=== PATIENT | female | born 1970 | race Caucasian/White ===

== ENCOUNTER 2020-02-24 09:14 | Outpatient (CLI) | payer BC, SELFPAY ==
--- NOTE | ~2020-02-24 | MM_ITS ---
EXAMINATION: MM screening [facility] BI w hang HISTORY: Screening mammogram TECHNIQUE: Craniocaudal and mediolateral oblique 3-D tomosynthesis images were obtained and synthetic 2-D images were generated. CAD analysis was submitted and interpreted. COMPARISON: 01/30/2019, 01/15/2018, 12/22/2016 bilateral digital screening mammogram examinations BREAST PARENCHYMAL COMPOSITION: The breasts are heterogeneously dense, which may obscure small masses . FINDINGS: There is no evidence of suspicious mass, calcification, or architectural distortion to sugg est malignancy in either breast. There has been no suspicious interval change. IMPRESSION: 1. No mammographic evidence of malignancy. 2. Recommend routine screening mammography in one year. BI-RADS Category 1: Negative Reviewed, dictated and finalized at location A. LE REPAIRER
== END 2020-02-24 09:15 | disposition home or self-care (01) ==
PROVIDERS: PCP Family Medicine; Visit Provider Nurse Practitioner Obstetrics & Gynecology
DX: Z12.31 Encounter for screening mammogram for malignant neoplasm of breast (principal)
CPT/HCPCS: 77063; 77067

== ENCOUNTER 2021-04-01 15:36 | Outpatient (CLI) | payer BC, SELFPAY ==
--- NOTE | ~2021-04-01 | MM_ITS ---
EXAMINATION: MM screening [facility] BI w hang HISTORY: Screening mammogram TECHNIQUE: Craniocaudal and mediolateral oblique 3-D tomosynthesis images were obtained and synthetic 2-D images were generated. CAD analysis was submitted and interpreted. COMPARISON: 02/24/2020, 01/30/2019, 01/15/2018 BREAST PARENCHYMAL COMPOSITION: The breasts are heterogeneously dense, which may obscure small masses . FINDINGS: There is no evidence of suspicious mass, calcification, or architectural distortion to sugg est malignancy in either breast. There has been no suspicious interval change. IMPRESSION: 1. No mammographic evidence of malignancy. 2. Recommend routine screening mammography in one year. BI-RADS Category 1: Negative Reviewed, dictated and finalized at location A. ER FOLDER
== END 2021-04-01 15:37 | disposition home or self-care (01) ==
PROVIDERS: PCP Family Medicine; Visit Provider Nurse Practitioner Obstetrics & Gynecology
DX: Z12.31 Encounter for screening mammogram for malignant neoplasm of breast (principal)
CPT/HCPCS: 77063; 77067

== ENCOUNTER 2021-04-23 08:05 | Outpatient (CLI) | payer BC, SELFPAY ==
[2021-04-23 09:18] LABS: Basophils Absolute Auto 0.1 K/mm3 (0.0-0.1); Eosinophils Absolute Auto 0.2 K/mm3 (0-0.3); Eosinophils Percent Auto 2.9 % (0-4.4); Hematocrit 43.8 % (37.0-47.0); Hemoglobin 14.6 g/dL (12.0-15.0); Immature Granulocyte Absolute 0.02 K/mm3 (0.00-0.031); Immature Granulocyte Percent A 0.3 % (0-0.5); Lymphocytes Absolute Auto 2.35 K/mm3 (0.9-3.2); Lymphocytes Percent Auto 40.4 % (18.3-44.2); Mean Corpuscular HGB Conc 33.3 g/dl (32-36); Mean Corpuscular Hemoglobin 32.6 pg (26-34); Mean Corpuscular Volume 97.8 fl (80-100); Mean Platelet Volume 10.7 fl (7.4-10.4); Monocytes Absolute Auto 0.6 K/mm3 (0.1-0.6); Monocytes Percent Auto 9.5 % (2.6-8.5); Neutrophils Absolute Auto 2.7 K/mm3 (1.3-6.7); Neutrophils Percent Auto 45.9 % (45.5-73.1); Platelet Count Result 188 k/mm3 (150-375); Red Blood Count 4.48 M/mm3 (4.2-5.4); Red Cell Distribution Width 12.2 % (11.5-14.5); White Blood Count 5.8 K/mm3 (4.5-10.0)
[2021-04-23 09:24] LABS: Alanine Aminotransferase 25 U/L (4-35); Albumin Level 4.6 g/dL (3.5-5.1); Alkaline Phosphatase 40 U/L (38-126); Anion Gap 7 mmol/L (8-16); Aspartate Amino Transferase 30 U/L (14-36); Bilirubin,Total 0.7 mg/dL (0.2-1.3); Blood Urea Nitrogen 13 mg/dL (7-17); Calcium 9.9 mg/dL (8.4-10.2); Carbon Dioxide 31 mmol/L (22-30); Chloride 104 mmol/L (98-107); Cholesterol 186 mg/dL (0-200); Estimated Glomerular Filt Rate > 60; Glucose 110 mg/dL (65-110); HDL Direct 44 mg/dL; Potassium 4.3 mmol/L (3.4-5.0); Sodium 142 mmol/L (137-145); Triglycerides 91 mg/dL (<150)
[2021-04-23 09:35] LABS: Hemoglobin A1C 5.5 % (<5.7)
[2021-04-23 09:37] LABS: LDL Cholesterol Direct 106 mg/dL
[2021-04-23 10:30] LABS: Vitamin D 25 Hydroxy 48.1 ng/mL
== END 2021-04-23 08:06 | disposition home or self-care (01) ==
LOC: ANHLAB 08:06
PROVIDERS: PCP Family Medicine; Visit Provider Family Medicine
DX: R53.83 Other fatigue (principal); R73.9 Hyperglycemia, unspecified
CPT/HCPCS: 36415; 80053; 80061; 82306; 83036; 85025

== ENCOUNTER 2022-11-19 07:47 | Outpatient (CLI) | payer BC, SELFPAY ==
--- NOTE | ~2022-11-19 | MM_ITS ---
EXAMINATION: MM screening [facility] BI w hang HISTORY: Screening mammogram TECHNIQUE: Craniocaudal and mediolateral oblique 3-D tomosynthesis images were obtained and synthetic 2-D images were generated. CAD analysis was submitted and interpreted. COMPARISON: No prior mammogram is available for comparison at this institution. BREAST PARENCHYMAL COMPOSITION: FINDINGS: Right breast: There is asymmetry in the upper outer right breast. Diagnostic right mammogram is recom mended, with ultrasound if required. Left breast: There is no evidence of suspicious mass, calcification, or architectural distortion to s uggest malignancy in the left breast. There has been no suspicious interval change. IMPRESSION: 1. Right breast mammographic asymmetry 2. Diagnostic right mammogram is recommended, with ultrasound if required BI-RADS Category 0: Incomplete: Needs additional imaging evaluation. Reviewed, dictated and finalized at location A.
== END 2022-11-19 07:48 | disposition home or self-care (01) ==
PROVIDERS: PCP Family Medicine; Visit Provider Nurse Practitioner Obstetrics & Gynecology
DX: Z12.31 Encounter for screening mammogram for malignant neoplasm of breast (principal); N64.89 Other specified disorders of breast
CPT/HCPCS: 77063; 77067

== ENCOUNTER 2022-12-27 12:26 | Outpatient (CLI) | payer BC, SELFPAY ==
--- NOTE | ~2022-12-27 | MMUS_ITS ---
EXAMINATION: MM diagnostic [facility] RT w hang, US breast RT limited HISTORY: Right breast mammographic asymmetry reported in upper outer quadrant on 11/19/2022 screening mammogram examination TECHNIQUE: Additional 3-D tomosynthesis images of the right breast were performed and synthetic 2-D i mages were generated. CAD analysis was submitted and interpreted. High resolution upper outer quadran t right breast ultrasound was performed. COMPARISON: 11/19/2022, 04/01/2021 bilateral screening mammogram examinations FINDINGS: MAMMOGRAPHIC FINDINGS: No suspicious mass or architectural distortion, malignant calcification, skin thickening or retractio n is evident on these supplemental views. ULTRASOUND: Real-time imaging of the upper outer quadrant of the right breast reveals no suspicious mass or shado wing, cyst or other significant abnormality. IMPRESSION: 1. No mammographic evidence of malignancy 2. Routine annual mammographic screening is recommended BI-RADS Category 1: Negative Reviewed, dictated and finalized at location C. IMPRESSION: 1. No mammographic evidence of malignancy 2. Routine annual mammographic screening is recommended BI-RADS Category 1: Negative
== END 2022-12-27 12:27 | disposition home or self-care (01) ==
PROVIDERS: PCP Family Medicine; Visit Provider Nurse Practitioner Obstetrics & Gynecology
DX: R92.8 Other abnormal and inconclusive findings on diagnostic imaging of breast (principal)
CPT/HCPCS: 76642; 77061; 77065; G0279

== ENCOUNTER 2024-04-25 15:43 | Outpatient (CLI) | payer BC, SELFPAY ==
--- NOTE | ~2024-04-25 | MM_ITS ---
EXAMINATION: MM screening enedelia BI w hang HISTORY: Screening TECHNIQUE: Craniocaudal and mediolateral oblique 3-D tomosynthesis images were obtained and synthetic 2-D images were generated. CAD analysis was submitted and interpreted. COMPARISON: Comparison to multiple prior studies sequentially, with oldest reviewed study dated 01/04. BREAST PARENCHYMAL COMPOSITION: Not dense: There are scattered areas of fibroglandular density. FINDINGS: There is no evidence of suspicious mass, calcification, or architectural distortion to sugg est malignancy in either breast. There has been no suspicious interval change. IMPRESSION: 1. No mammographic evidence of malignancy. 2. Recommend routine screening mammography in one year. BI-RADS Category 1: Negative Reviewed, dictated and finalized at location B. 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
--- OUTSIDE RECORDS SUMMARY | 2024-04-25 15:47 | XMS_ITS | Patient Health Summary ---
Author Organization [facility] Address [address] [place] [address] Care Team Providers Care Senior Telecommunications Consultant Name Role Phone Katharine Moreno MD Primary Care Provider Note from [facility],non-owned Affiliates and Associated Physician Practices is amultiple site organization consisting of ambulatory clinics and hospital sitesin [place], [place], [place] and [place]. This disclosure is being madepursuant to the Care Everywhere program and may not contain all information available regarding this patient. Last updated 17.[facility] Breather Allergies No known active allergies Social History Tobacco Use Types Packs/Day Years Used Date Smoking Tobacco: Never Assessed Sex and Gender Information Value Date Recorded Sex Assigned at Not on file Gender Identity Not on file Sexual Orientation Not on file Procedures * SONOGRAM - COMPLETE(Performed 09/21/2010) * CYTOLOGY SMEAR PAP(Performed 03/15/1996) Results * SONOGRAM - COMPLETE (09/21/2010 2:15 PM CDT) Anatomical Region Laterality Modality Other 09/21/2010 2:15 PM CDT Narrative 09/21/2010 4:46 PM CDT [facility] PHONE: FAX: FETUS A Pat. Name: ROGELIO BROWN Pat. No: [id number] Study Date: 09/21/2010 2:15pm , Age: 11 1970, 39 Pregnancies: 1 LMP: 05/06/2010 GA by LMP: 19w5d GA by US: 20w3d GA Selected: 19w5d (LMP) LILIANE: 02/10/2011 Referring MD: KATHARINE MORENO MD Deodorizer Operator: Lara Chu RN, RDMS Hist/Ind: Advanced maternal age, multigravida Twins MEASUREMENTS & AGE GROWTH EVALUATION Measurement GA Range Srce %for GA Ratios ----- ---- ------- BPD 4.9 cm 21w0d (33g0s-10u5h) Hadl BPD 83% FL/BPD 0.64 HC 18.4 cm 20w5d (50i4w-15t0k) Hadl HC 82% FL/AC 0.21 AC 14.9 cm 20w1d (09x4q-20s0i) Hadl AC 59% HC/AC 1.24 (1.06 - 1.25) FL 3.2 cm 19w6d (36t3g-13t0n) Hadl FL 54% CI 0.74 (0.70 - 0.86) GA for sonogram 20w3d (05r2d-42e8g) Weight Estimate: based on (BPD,HC,AC,FL) Avg Weight: 333 gm (284-381) Hadlock : 0lbs, 11oz Heart Rate: 152 bpm Amniotic Fluid Index: 05.6cm (Deepest Pocket) DOPPLER Umbilical - Mid Cord S/D 3.80 CLINICAL SUMMARY Study Number: 1 The measurements today are consistent with menstrual dates. The LILIANE selected is based on her LMP and is confirmed by today's examination. The estimated weight difference is less than 1 percent. Twin A is male, breech on the maternal right. Twin B is female, vertex on the maternal left. One anterior placenta is seen. A membrane is seen measuring 0.3 cm. A chorionic peak is identified. The amniotic fluid volume appears within normal limits in both sacs. The deepest vertical pocket measures 5.6 cm for twin A and 6.8 cm for twin B. The anatomic survey appears normal for both twins. The patient was advised that ultrasound does not allow detection of all structural or chromosomal abnormalities. The patient declined the option of amniocentesis at this time, though she expressed interest in discussion her risks with a genetic counselor. TESTING The umbilical artery Doppler S/D ratio is 3.7 for twin A and 3.7 for twin B, which are within normal limits for gestational age. IMPRESSION: Diamniotic/Dichorionic twin gestation with concordant growth and fluid. Sizes are consistent with LMP dating for both babies No major/minor anomalies seen at this time for either twin Reassuring umbilical dopplers for both babies. RECOMMEND: Serial ultrasounds for growth every 4 weeks Transvaginal ultrasound of the cervix in 2-4 weeks Consider genetic consult Thank you for allowing us the opportunity to care for your patient. Casey Wright MD <Electronic Signature> 09/21/2010 04:00pm FETUS B Pat. Name: ROGELIO BROWN Pat. No: [id number] Study Date: 09/21/2010 2:15pm , Age: 11 1970, 39 Pregnancies: 1 LMP: 05/06/2010 GA by LMP: 19w5d GA by US: 20w1d GA Selected: 19w5d (From Fetus A) LILIANE: 02/10/2011 Referring MD: KATHARINE MORENO MD Deodorizer Operator: Lara Chu RN, RDMS Hist/Ind: Advanced maternal age, multigravida Twins MEASUREMENTS & AGE GROWTH EVALUATION Measurement GA Range Srce %for GA Ratios ----- ---- ------- BPD 4.8 cm 20w3d (06w4l-68d5u) Hadl BPD 71% FL/BPD 0.67 HC 17.5 cm 20w0d (00a3a-68z9s) Hadl HC 59% FL/AC 0.22 AC 15.0 cm 20w1d (79p1j-52d9f) Hadl AC 61% HC/AC 1.17 (1.06 - 1.25) FL 3.2 cm 20w0d (26x8h-11d9z) Hadl FL 58% CI 0.76 (0.70 - 0.86) HL 3.1 cm 20w2d (57o0w-71j6c) J Luis HL 60% GA for sonogram 20w1d (12d3g-81b3t) Weight Estimate: based on (HL,BPD,HC,AC,FL) Avg Weight: 334 gm (285-383) Hadlock : 0lbs, 11oz Heart Rate: 153 bpm Amniotic Fluid Index: 06.8cm (Deepest Pocket) DOPPLER Umbilical - Mid Cord S/D 3.70 CLINICAL SUMMARY Study Number: 1 See report on twin A. Casey Wright MD <Electronic Signature> 09/21/2010 04:00pm Katharine Moreno MD [facility] ORDERABLES * CYTOLOGY SMEAR PAP (03/15/1996 8:51 AM SPARKER AND PATCHER) Result CASE NUMBER [id number] Comment: ORDERING PHYSICIAN ASHLEY ROMO SPECIMEN TYPE PAP Smear Date 03/08/1996 Procedure Cervical/Endocervical Vaginal Specimen Adequacy Satisfactory for Evaluation Categorization Benign Cellular Changes Comment Fungal Organisms Morphologically Consistent with Brissa spp. Predominance of Coccobacilli Consistent with Shift in Vaginal Tracie. Snomed. 03/20/1996 1350 <3> Customer Contact Sales Associate Corina Mitchell([facility]) PAP Footnote The PAP smear is only a screening procedure to aid in the detection of cervical cancer and its precursors. It is not as diagnostic procedure and should not be used as the sole means to detect cervical cancer. Both false-negative and false positive results have been experienced. MISCELLANEOUS SAMPLES / Unknown 03/15/1996 8:51 AM SPARKER AND PATCHER 03/16/1996 8:51 AM SPARKER AND PATCHER Historical Provider LAB - PATHOLOGY/C YTOLOGY ORDERABLES Care Teams Senior Telecommunications Consultant Relationship Specialty Start Date End Date Katharine Moreno MD [address] [address] PCP - General 09/21/10
--- OUTSIDE RECORDS SUMMARY | 2024-04-25 15:47 | XMS_ITS | Clinical Summary ---
Author Organization [facility] Address [address] [place] [address] Care Team Providers Care Mission Manager Name Role Phone Katharine Moreno MD Primary Care Provider Source Comments [facility],non-owned Affiliates and Associated Physician Practices is amultiple site organization consisting of ambulatory clinics and hospital sitesin [place], [place], [place] and [place]. This disclosure is being madepursuant to the Care Everywhere program and may not contain all information available regarding this patient. Last updated 17.[facility] Allergies No known active allergies Social History Tobacco Use Types Packs/Day Years Used Date Smoking Tobacco: Never Assessed Sex and Gender Information Value Date Recorded Sex Assigned at Not on file Gender Identity Not on file Sexual Orientation Not on file Plan of Treatment Health Maintenance Due Date Last Done Comments COLOGUARD (AGES 45-75) - COL ON CA SCREENING 1971 COLON MONITORING 1971 COLONOSCOPY - COLON CA SCREENING 1971 CT COLONOGRAPHY - COLON CA SCREENING 1971 Colorectal Cancer Screening 1971 FIT - COLON CA SCREENING 1971 FLEX SIG - COLON CA SCREENING 1971 LIPID TESTING 1971 MAMMOGRAM 1971 HIV SCREENING 12/14/1986 HEPATITIS C SCREENING 12/10/1989 DTAP/TDAP/TD VACCINES (1 - Tdap) 12/14/1990 HEPATITIS B VACCINE (1 of 3 - 19+ 3-dose series) 12/14/1990 PAP SMEAR 03/15/1999 03/15/1996 PNEUMOCOCCAL VACCINE 50+ (1 of 1 - PCV) 12/14/2021 ZOSTER VACCINE (1 of 2) 12/14/2021 COVID-19 VACCINE (2023-2 5 season) 2023 INFLUENZA VACCINE (#1) 2023 DEPRESSION SCREENING 03/06/2024 HIB VACCINE Aged Out No longer eligi ble based on patient's age to complete this topic HPV VACCINE Aged Out No longer eligi ble based on patient's age to complete this topic MENINGOCOCCAL (Group B) VACCINE Aged Out No longer eligible based on patient's age to complete this topic MENINGOCOCCAL VACCINE Aged Out No mary latanya eligible based on patient's age to complete this topic PNEUMOCOCCAL VACCINE Aged Out No long er eligible based on patient's age to complete this topic Procedures Procedure Name Priority Date/Time Associated Diagnosis Comments CYTOLOGY SMEAR PAP NAZ 03/15/1996 8: 51 AM FEED MIXER HELPER from Last 3 Months or Most Recently Relevant to Health Maintenance Results * CYTOLOGY SMEAR PAP (03/15/1996 8:51 AM FEED MIXER HELPER) Result CASE NUMBER [id number] Comment: ORDERING PHYSICIAN ASHLEY ROMO SPECIMEN TYPE PAP Smear Date 03/08/1996 Procedure Cervical/Endocervical Vaginal Specimen Adequacy Satisfactory for Evaluation Categorization Benign Cellular Changes Comment Fungal Organisms Morphologically Consistent with Brissa spp. Predominance of Coccobacilli Consistent with Shift in Vaginal Tracie. Snomed. 03/20/1996 1350 <3> Aircraft Load Controller Corina Mitchell(ASCP) PAP Footnote The PAP smear is only a screening procedure to aid in the detection of cervical cancer and its precursors. It is not as diagnostic procedure and should not be used as the sole means to detect cervical cancer. Both false-negative and false positive results have been experienced. MISCELLANEOUS SAMPLES / Unknown 03/15/1996 8:51 AM FEED MIXER HELPER 03/16/1996 8:51 AM FEED MIXER HELPER Historical Provider MD LAB - PATHOLOGY/C YTOLOGY ORDERABLES from Last 3 Months or Most Recently Relevant to Health Maintenance Care Teams Mission Manager Relationship Specialty Start Date End Date Katharine Moreno MD [address] [place] [address] PCP - General 09/21/10
--- OUTSIDE RECORDS SUMMARY | 2024-04-25 15:47 | XMS_ITS | Referral Summary ---
Author Organization [facility] Address [address] [place] [address] Care Team Providers Care Practice Business Asst Name Role Phone Katharine Moreno MD Primary Care Provider [phone] Source Comments [facility],non-owned Affiliates and Associated Physician Practices is amultiple site organization consisting of ambulatory clinics and hospital sitesin [place], [place], [place] and [place]. This disclosure is being madepursuant to the Care Everywhere program and may not contain all information available regarding this patient. Last updated 17.[facility] Allergies No known active allergies Social History Tobacco Use Types Packs/Day Years Used Date Smoking Tobacco: Never Assessed Sex and Gender Information Value Date Recorded Sex Assigned at Not on file Gender Identity Not on file Sexual Orientation Not on file Plan of Treatment Not on file Procedures Procedure Name Priority Date/Time Associated Diagnosis Comments CYTOLOGY SMEAR PAP NAZ 03/15/1996 8: 51 AM CESSPOOL CLEANER from Last 3 Months or Most Recently Relevant to Health Maintenance Results * CYTOLOGY SMEAR PAP (03/15/1996 8:51 AM CESSPOOL CLEANER) Result CASE NUMBER [id number] Comment: ORDERING PHYSICIAN ASHLEY ROMO SPECIMEN TYPE PAP Smear Date 03/08/1996 Procedure Cervical/Endocervical Vaginal Specimen Adequacy Satisfactory for Evaluation Categorization Benign Cellular Changes Comment Fungal Organisms Morphologically Consistent with Brissa spp. Predominance of Coccobacilli Consistent with Shift in Vaginal Tracie. Snomed. 03/20/1996 1350 <3> Road Consultant Corina Mitchell(ASCP) PAP Footnote The PAP smear is only a screening procedure to aid in the detection of cervical cancer and its precursors. It is not as diagnostic procedure and should not be used as the sole means to detect cervical cancer. Both false-negative and false positive results have been experienced. MISCELLANEOUS SAMPLES / Unknown 03/15/1996 8:51 AM CESSPOOL CLEANER 03/16/1996 8:51 AM CESSPOOL CLEANER Historical Provider MD LAB - PATHOLOGY/C YTOLOGY ORDERABLES from Last 3 Months or Most Recently Relevant to Health Maintenance Care Teams Practice Business Asst Relationship Specialty Start Date End Date Katharine Moreno MD [address] [address] PCP - General 09/21/10
--- OUTSIDE RECORDS SUMMARY | 2024-04-25 15:47 | XMS_ITS | Clinical Summary ---
Author Organization [facility] Address [address] [place] [address] Care Team Providers Care Inker And Opaquer Name Role Phone Unavailable Primary Care Provider Unavailabl e Immunizations Name Administration Dates Next Due PFIZER COVID-19 (ORIGINAL FO RMULATION, PURPLE CAP) mRNA, LNP-S, PF, 30 MCG/0.3 ML DOSE 05/16/2020,04/25/2020 Social History Tobacco Use Types Packs/Day Years Used Date Smoking Tobacco: Never Assessed Comments Unknown Sex and Gender Information Value Date Recorded Sex Assigned at Not on file Legal Sex Female 5:07 PM CORRESPONDENCE CLERK Gender Identity Not on file Sexual Orientation Not on file Plan of Treatment Health Maintenance Due Date Last Done Comments Cervical Cancer Screening Pa p Smear (Age 30 to 64) Every 3 Years 1970 Colorectal Cancer Screening Colonoscopy (10 Years) 1970 Annual Physical 12/14/1974 Hepatitis C 12/14/1989 DTaP, Tdap and Td Vaccines ( 1 - Tdap) 12/14/1990 Hepatitis B Vaccines (1 of 3 - 19+ 3-dose series) 12/14/1990 Cervical Cancer Screening Pa p with HPV Testing (Age 30 to 64) Every 5 Years 12/14/2001 Cervical Cancer Screening wi th HPV 12/14/2001 Mammogram Screening 2011 Zoster Vaccines (1 of 2) 12/14/2021 COVID-19 Vaccine (2023-2 5 season) 2023 05/16/2020, 04/25/2020 Influenza Adult (#1) 2023 Meningococcal B Vaccine Aged Out No l onger eligible based on patient's age to complete this topic Meningococcal Vaccine Aged Out No mary latanya eligible based on patient's age to complete this topic Pneumococcal Vaccine: Pediatrics (0 to 5 Years) and At-Risk Patients (6 to 64 Years) Aged Out No longer eligible b ased on patient's age to complete this topic RSV Immunizations Under 20 Months Aged Out No longer eligible b ased on patient's age to complete this topic
--- OUTSIDE RECORDS SUMMARY | 2024-04-25 15:47 | XMS_ITS | Data Portability ---
Author Organization [facility] [place] Address [address] [place] [address] Care Team Providers Care Center Sales And Service Associate Name Role Phone QUE WOODZABETH Primary Care Provider [phone] Assessment Encounter Date Assessment Date Assessment LastModified by Organization Details LastModified Time 10/16/2020 10/16/2020 Annual gynecological exam performed. Patient will come back in a year unless there are new symptoms. Not available 10/16/2020 12:36:00 02/23/2022 02/23/2022 Annual gynecological exam performed. Patient will come back in a year unless there are new symptoms. Not available 02/23/2022 10:46:12 02/28/2023 02/28/2023 Annual gynecological exam performed. Patient will come back in a year unless there are new symptoms. [email or web address] Not available 02/28/2023 09:30:10 03/25/2024 03/25/2024 Annual gynecological exam performed. Patient will come back in a year unless there are new symptoms. [email or web address] Not available 03/18/2024 18:15:18 Plan of Treatment Reminders Order Date Submit Date Provider Last Modified By Organization Details Last Modified Time Details Appointments IUD REMOVAL 2024 09:00A M MARTINEZ LINDQUIST NP Not available Not available Not available Lab factor V activity, plasma 2020 021 [facility] (Lab), [address], [place], [address], 10/21/2020 05:02:47 Referral gastroent erologist referral - Please call the patient to schedule an appt. Thank you. 2020 021 MADDISON Dejessu MD, [address], [address], [place], [address], 08/15/2021 05:00:41 Procedures None recorded. Surgeries None recorded. Imaging MAMMO, screening , digital, bilateral 2024 025 [facility], [address], [address], [place], [address], 04/01/2024 04:01:34 Medication Orders None recorded. Patient TargetsNo targets recorded. Patient Instructions Encounter Date Encounter Id Patient Instructions Last Modified By Organization Details Last Modified Time 10/16/2020 [id number] factor V leiden: care instructions [email or web address] Not available 10/16/2020 13:16:59 Reason for Referral A R Collections Rep Referral for Screening for malignant neoplasm of colon Please call the patient to schedule an appt. Thank you. Referring Physician: Gabriela Ponce, [employer]PER, Encounter Date: 10/16/2020 Results Created Date Observation Date Name Description Value Unit Range Abnormal Flag Note LastModifiedBy Organization Detail LastModifiedTime 10/17/1910/16/2020 IMAGE GUIDE D PAP AND HPV REGAR DLESS image guided Pap, HPV regardless of Pap result SEE RESULT S BELOW CASE REPOR T: Cytol ogy Gynec ologi dina Repor t Case: [id number] Autho lindsay gomez Provi justin: Miah Arizmendi Colle cted: 10/16 1521 SPEECH LANGUAGE PATHOLOGIST Order ing Locat ion: [place] [facility] Recei nehemias: 10/19 1041 First Scree n: Kim Nolasco ret, CT Speci men: Scree geo Pap - Image d, Cervi x STATE MENT OF ADEQU ACY: Satis facto ry for evalu ation Trans forma tion zone compo nent prese nt FINAL DIAGN OSIS: Negat segundo for Intra epith elial Lesio n or Lola orosco (NIL) Elect mercy love jaspreet d by Kim Nolasco ret, CT on 2020 at 11:00 AM ----- ----- ----- ----- ----- ----- ----- ----- ----- ----- ----- ----- ----- ----- ----- ----- ----- ---- HPV RESUL TS: HPV mRNA E6/E7 : No HPV mRNA Detec alpa NOTE: This high risk HPV mRNA assay detec ts fourt een high- risk HPV types (16, 18, 31, 33, 35, 39, 45, 51, 52, 56, 58, 59, 66, 68) witho ut diffe renti ation . CHART ABLE COMME NT: Note: This speci men was revie wed by a Cytot echno logis t and/o r Patho logis t (as indic ated in this repor t) after evalu ation using the Thinp rep Imagi ng Syste m. CLINI DINA INFOR MATIO N: Menst rual Statu s: LMP (if appli cable ): Clini dina Histo ry/Pr eviou s Pap: Type of Neopl shruthi (if appli cable ): Signi fican t Clini dina Findi ngs: Other Histo ry: Hormo adolph (if appli cable ): PAP EDUCA BECCA L NOTE: The Pap Test is a scree geo test with an inher ent false negat segundo rate. Liqui d-bas e sampl ing may decre ase, but will not elimi stuart, false negat segundo resul ts. A negat segundo resul t does not precl ude the prese nce and/o r devel opmen t of disea se, since the prese nce of abnor mal cells in the sampl e depen ds on the locat ion of the lesio n and sampl ing techn ique. Sean nued regul ar scree geo is the best metho d of cance r preve ntion . If repor alpa cytol ogic findi ng do not corre late with physi dina and/o r histo rical findi ngs, fur er inves tigat ion is recom barbra d, as clini dallin jamesa nted. Not Available [facility] (Lab) [address], [place], [address], 10/20/2020 12:04:28 10/17/19 21 10/16/2020 VONWI LLEBR AND FACTO R ANTIG EN von willebrand factor antigen 87 % 50-217 Perfo rming Organ izati on Infor matio n: Site ID: [id number] Name: [facility] Addre ss: [id number] [place], [place] Direc tor: Atiya Gloria M.D. Not Available [facility] (Lab) [address], [place], [address], 10/21/2020 05:02:47 10/17/19 21 10/16/2020 FACTO R V, ACTIV ITY factor V activity 120 %_nor mal 65-150 Perfo rming Organ izati on Infor matio n: Site ID: EZ Name: [facility] [place] , Addre ss: [id number] [place] [address] Dire tor: Jyoti arrieta MD,Ph D,MIKE Not Available [facility] (Lab) [address], [place], [address], 10/21/2020 05:02:47 02/29/20 23 02/28/2023 IMAGE GUIDE D PAP AND HPV REGAR DLESS image guided Pap, HPV regardless of Pap result SEE RESULT S BELOW CASE REPOR T: Cytol ogy Gynec ologi dina Repor t Case: [id number] Autho lindsay g Provi justin: Miah Arzimendi Colle cted: 02/28 1412 SPEECH LANGUAGE PATHOLOGIST Order ing Locat ion: [place] Patho logy Recei nehemias: 02/28 2341 First Scree n: Earnestine Alva, CT Rescr een: Sharon Stewart Speci men: Scree geo Pap - Image d, Cervi x STATE MENT OF ADEQU ACY: Satis facto ry for evalu ation Trans forma tion zone compo nent absen t The absen ce of an endoc ervic al compo nent was confi rmed by an addit chad bailon. FINAL DIAGN OSIS: Negat segundo for Intra epith elial Lesio n or Lola orosco (NIL) . Elect mercy vogel d by Sharon Stewart on 03/02 at 4:19 PM ----- ----- ----- ----- ----- ----- ----- ----- ----- ----- ----- ----- ----- ----- ----- ----- ----- ---- HPV RESUL TS: HPV mRNA E6/E7 : No HPV mRNA Detec alpa NOTE: This high risk HPV mRNA assay detec ts fourt een high- risk HPV types (16, 18, 31, 33, 35, 39, 45, 51, 52, 56, 58, 59, 66, 68) witho ut diffe renti ation . COMME NT: This speci men was revie wed by a Cytot echno logis t and/o r Patho logis t (as indic ated in this repor t) after evalu ation using the Thinp rep Imagi ng Syste m. CLINI DINA INFOR MATIO N: Menst rual Statu s: LMP (if appli cable ): Clini dina Histo ry/Pr eviou s Pap: Type of Neopl shruthi (if appli cable ): Signi fican t Clini dina Findi ngs: Other Histo ry: Hormo adolph (if appli cable ): PAP EDUCA BECCA L NOTE: The Pap Test is a scree geo test with an inher ent false negat segundo rate. Liqui d-bas ed sampl ing may decre ase, but will not elimi stuart, false negat segundo resul ts. A negat segundo resul t does not precl ude the prese nce and/o r devel opmen t of disea se, since the prese nce of abnor mal cells in the sampl e depen ds on the locat ion of the lesio n and sampl ing techn ique. Sean nued regul ar scree geo is the best metho d of cance r preve ntion . If repor alpa cytol ogic findi ng do not corre late with physi dina and/o r histo rical findi ngs, furth er inves tigat ion is recom barbra d, as clini dallin warrsaloni nted. Not Available [facility] (Lab) [address], [place], [address], 03/02/2023 17:22:36 04/09/19 22 MAMMO , scree geo, bilat eral No observ ation record ed. [facility] [address], [place], [address], 04/21/2021 21:03:20 Result Notes None recorded. Problems Name Problem SNOMED Code Status Onset Date Resolution Date Notes Provider Name and Address Organization Details Recorded Time Pregnanc y test negative 487170376 Completed 201610/16/2020 Encounte r for pregnanc y test, result negative ;Recorde d Elsewher e: No Locat ion: [facility] S ource: [facility] wilman: N Shashank ce ID: [id number] Sinan lable Time: 09:30:00 AM [facility] 12:19:[address] Concept Completed 201810/16/2020 Well woman check w/o abnormal finding; Recorded Elsewher e: No Locat ion: [facility] S ource: [facility] wilman: N Deventi ce ID: [id number] Sinan lable Time: 11:00:00 AM [facility] 12:19:12 Abnormal uterine bleeding [id number] 100 Completed 201610/16/2020 Other specifie d abnormal uterine and vaginal bleeding ;Recorde d Elsewher e: No Locat ion: [facility] S ource: [facility] wilman: N Deventi ce ID: [id number] Sinan lable Time: 09:00:00 AM Mary Block [facility] 12:18:[address] Concept Completed 201510/16/2020 Encntr for general adult medical exam w/o abnormal findings ;Recorde d Elsewher e: No Locat ion: [facility] S ource: [facility] wilman: N Practi ce ID: [id number] Sinan lable Time: 01:00:00 PM Mary Block [facility] 12:19:10 Pain in female genitali a Completed 201510/16/2020 Dysmenor miah;Rec orded Elsewher e: No Locat ion: [facility] S ource: [facility] wilman: N Deventi ce ID: [id number] Sinan lable Time: 01:00:00 PM Mary Block [facility], [facility] 12:19:02 Polyp of corpus uteri 41815696 Completed 201510/16/2020 Polyp of uterus;R ecorded Elsewher e: No Locat ion: [facility] Deventi ce ID: [id number] Sinan lable Time: 05:30:00 PM Mary Block [facility] 12:19:05 Screenin g for malignan t neoplasm of rectum Completed 201510/16/2020 Encounte r for screenin g for malignan t neoplasm of rectum;P ractice ID: 0001 Mary Block [facility] 12:19:09 Disorder of intraute rine contrace ptive device Completed 201610/16/2020 [facility] compl of intraute rine contrace ptive device, init encntr;R ecorded Elsewher e: No Locat ion: [facility] S ource: [facility] wilman: N Practi ce ID: [id number] Sinan lable Time: 10:30:00 AM Mary Block [facility] 12:19:00 Insertio n of intraute rine contrace ptive device Completed 201610/16/2020 Encounte r for insertio n of intraute rine contrace ptive device;R ecorded Elsewher e: No Locat ion: [facility] N Practi ce ID: [id number] Sinan lable Time: 09:30:00 AM Mary Block [facility] 12:19:04 Contrace ptive sheath status [id number] Completed 201610/16/2020 IUD follow up;Recor ded Elsewher e: No Locat ion: [facility] wilman: N Practi ce ID: 0001 Sinan lable Time: 08:30:00 AM Mary Block [facility] 12:18:59 Problem Notes None recorded. Procedures Surgical History Date Name Laterality Status Provider Name and Address Organization Details Recorded Time 02/29/20 23 Date of Last Pap Smear completed Laura Galeas [facility] 03/18/2024 18:16:38 12/05/19 23 Date of Last Mammogram completed Martha Vences [facility] 02/28/2023 09:34:49 10/24/19 22 Date of Last Colonoscopy completed Martha Vences [facility] 02/28/2023 09:24:00 08/20/19 22 IUD Insertion completed Mary Bailon [facility] 08/18/2021 20:04:45 Tubal Ligation completed Rukhsana Garcia [facility] 10/10/2019 10:29:05 Hysteroscopy completed Rukhsana Garcia [facility] 10/10/2019 10:29:11 Imaging Results Imaging Date Name Status LastModified by Organiz ation Details LastModified Time 04/09/2021 MAMMO, screening, bilateral completed [facility] [address], [place], [address], 04/21/2021 21:03:20 Procedure Notes None recorded. Medical Equipment None Reported. Allergies No known drug allergies Medications Name Sig Start Date Stop Date Status Note LastModified by Organization Details LastModified Time Mirena 21 mcg/24 hr (up to 8 years) 52 mg intrauter ine device Take by intraute rine route. active Not Available Not Available No t Available Metrogel Vaginal 0.75 % (37.5 mg/5 gram) insert 1 applicat orful by vaginal route every day at bedtime for 5 nights 08/25 completed Prescrib ed Elsewher e: No Locat ion: [facility] odify By: jose c mauro DateTime : 07/07/19 17 06:46:16 PM Not Available Not Available Not Available Depo-Prov era 150 mg/mL intramusc ular suspensio n inject 1 millilit er by intramus cular route every 3 months 07/01 completed Prescrib ed Elsewher e: No Locat ion: [facility] odify By: jose c mauro DateTime : 09/30/19 16 01:00:00 PM Not Available Not Available Not Available Flagyl 500 mg tablet take 1 tablet by oral route every 12 hours 07/08 completed Prescrib ed Elsewher e: No Locat ion: [facility] odify By: makeda sanches DateTime : 07/09/19 17 08:37:00 AM Not Available Not Available Not Available methylpre dnisolone 4 mg tablets in a dose pack TAKE 1 TABLET BY MOUTH DIRECTED 10/16 completed Not Available Not Available Not Available Zyrtec 10 mg chewable tablet chew 1 tablet by oral route every day active Prescrib ed Elsewher e: Yes [facility] By: artis mauro DateTime : 09/30/19 16 01:00:00 PM Not Available Not Available Not Available Zyrtec 10/09 completed Not Available Not Available Not Available Afluria Qd 2018- (36 mos up)(PF)60 mcg (15 mcg x4)/0.5 mL IM syringe 10/09 completed Not Available Not Available Not Available Vitals Date Recorded Body height Body mass index (BMI) Body weight Systolic blood pressure Diastolic blood pressure Provider Name and Address Organization Details Last Updated DateTime 10/16/2020 175.26 cm 30.6 kg/m2 32937.62 g 111 mm[Hg] 72 mm[Hg] Mary Block [facility] 12:36:59 Date Recorded Body height Body mass index (BMI) Body weight Provider Name and Address Organization Details Last Updated DateTime 02/23/2022 175.26 cm 32.8 kg/m2 859238.51 g Masha Canales [facility] 02/23/2022 10:46:38 Date Recorded Systolic blood pressure Diastolic blood pressure Provider Name and Address Organization Details Last Updated DateTime 02/23/2022 122 mm[Hg] 74 mm[Hg] Gabriela Ponce, [facility]- [address], [place], [address], [facility] 02/23/2022 10:49:59 Date Recorded Body weight Body mass index (BMI) Body height Systolic blood pressure Diastolic blood pressure Provider Name and Address Organization Details Last Updated DateTime 02/28/2023 96756.62 g 30.6 kg/m2 175.26 cm 115 mm[Hg] 78 mm[Hg] Martha Vences [facility] 3 09:33:59 Date Recorded Body height Body mass index (BMI) Body weight Systolic blood pressure Diastolic blood pressure Provider Name and Address Organization Details Last Updated DateTime 03/25/2024 175.26 cm 32.4 kg/m2 13061.17 g 113 mm[Hg] 79 mm[Hg] Laura Galeas [facility] 10:05:10 Social History Question Answer Notes LastModified by Organizat ion Details LastModified Time Tobacco Smoking Status Never Smoker [facility] 02/23/2022 10:47:05 Do You Have An Advance Directive? No Information n ot available 10/16/2020 What Is Your Level Of Alcohol Consumption? Occasional Information not available 10/16/2020 Are You Blind Or Do You Have Difficulty Seeing? No Information n ot available 10/16/2020 What Is Your Level Of Caffeine Consumption? Moderate Information not available 10/16/2020 How Much Tobacco Do You Chew? None Information not available 02/23/2022 In The 14 Days Before Symptom Onset, Have You Had Close Contact With A Laboratory-confirm ed COVID-19 While That Case Was Ill? No Information n ot available 10/16/2020 In The 14 Days Before Symptom Onset, Have You Had Close Contact With A Person Who Is Under Investigation For COVID-19 While That Person Was Ill? No Information not available 10/16/2020 Have You Been To An Area Known To Be High Risk For COVID-19? No Information not available 10/16/2020 Are You Deaf Or Do You Have Serious Difficulty Hearing? No Information not available 10/16/2020 What Type Of Diet Are You Following? REGULAR Information n ot available 10/16/2020 What Is The Highest Grade Or Level Of School You Have Completed Or The Highest Degree You Have Received? 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 Yes Information not available 10/16/2020 Do You Use Protection During Sex? No Information not available 10/16/2020 Do You Use Your Seat Belt Or Car Seat Routinely? Yes Information not available 10/16/2020 Do You Have Smoke And Carbon Monoxide Detectors In Your Home? Yes Information not available 10/16/2020 How Much Tobacco Do You Smoke? No Information not available 02/23/2022 Do You Feel Stressed (tense, Restless, Nervous, Or Anxious, Or Unable To Sleep At Night)? [id number] Information not available 10/16/2020 Do You Use Any Illicit Or Recreational Drugs? No Information not available 10/16/2020 Do You Use Sunscreen Routinely? Yes Information not available 10/16/2020 Have You Used IV Drugs? No Information not available 10/16/2020 Sex: Unknown Functional Status Question Answer Note LastModified by Organization D etails LastModified Time Are you able to walk? YESWOREST Information not available 10/16/2020 What is your exercise level? Moderate Information not available 10/16/2020 Mental Status None recorded. Family History Relationship Description Onset Age of this Age Resolved Age Notes LastModified by Organization Details LastModified Time Mother Diabetes mellitus [email or web address] Not available 2019 10:27:56 Mother Hyperlipidem ia Not available 2024 09:50:18 Mother Congenital heart disease [email or web address] Not available 2024 09:50:18 Mother Hypertensive disorder Not available 2020 12:25:08 Father Diabetes mellitus [email or web address] Not available 2019 10:27:56 Father Hyperlipidem ia [email or web address] Not available 2024 09:50:18 Father Congenital heart disease Not available 2024 09:50:18 Father Hypertensive disorder Not available 2020 12:25:43 Sister Hyperlipidem ia [email or web address] Not available 2024 09:50:18 Sister Congenital heart disease [email or web address] Not available 2024 09:50:18 Sister Hypertensive disorder Not available 2020 12:25:08 Medical History Condition Response Allergies (Food, seasonal, environmental ) N Other N Drug/Latex Allergies/Reactions N Blood Transfusion N Breast Cancer N Dermatologic Disorders N Lung Disease N Defects or Inherited Disease N Breast Problem N Gestational Diabetes N Hematologic disorders N Anesthesia Complications N History of STI N Deep Vein Thrombosis N Polycystic ovary syndrome N Anxiety Disorder N Autoimmune disease N Arthritis N Polyps N Infertility N Acid Reflux (GERD) N History of abnormal pap N Cancer N Varicosities N Stroke N Neurologic/Epilepsy N Endometriosis N High Cholesterol N Fibromyalgia N Headaches N Kidney Disease N Heart Problems N Thyroid Problems N Kidney or Bladder Problems N GI Problems N Eating Disorder N Anemia N Art (IVF or FET) N Psychiatric Illness N Ovarian Cancer N Diabetes N Pulmonary (TB, Asthma) N Hepatitis/Liver Disease N Eczema N Urinary Tract Infection N Abuse/Domestic Violence N Asthma N Trauma/Violence N Depression/ depression N Heart Disease N Pre-Eclampsia N Hypertension N Osteoporosis N Thrombophilias N Gynecological History Statement/Question Response Abnormal Pap Y Date of Last Mammogram 12/04/2022 STIs/STDs Y Current Control Method IUD Age at First Child 40 Date of Last Colonoscopy 10/23/2021 Sexually Active? Y Menses Monthly N Age of first menstrual cycle 14 Date of Last Pap Smear 02/28/2023 Sexual Problems? N LMP Unknown Obstetrics History GPAL:G 1 P 0 0 0 2 Type Value Multiple Births 1 Living 2 Total 1 Past Encounters Encounter ID Performer Location Encounter Start Date Encounter Closed Date Diagnosis/Indication Diagnosis SNOMED-CT Code Diagnosis ICD10 Code Diagnosis Note [id number] Gabriela Ponce [facility] [address] [address] 10/10/2019 10:08:44 10/10/2019 12:31:44 Gynecologic examination 32516161 Z01.419 Suggested Calcium with Vitamin D 1200-1500m g daily. Patient advised to get an annual flu shot in the fall and she could obtain at [facility] or [facility] Also to obtain TDap vaccinatio n if you have not had one in the last 10 years. Recommend yearly mammograms . Encouraged monthly self breast exams. Encourage safe sexual practices, to use condoms and limit partners if not already in a monogamous relationsh ip. Engage in daily exercise of low impact aerobic exercise 45-60 minutes 4-5 times weekly. Avoid tobacco and illicit drugs as well as using moderation with alcohol intake less than 1-2 8 oz beverages daily. This lifestyle behavior pattern will lead to less health conditions and longer life span. If BMI greater than 25 weight watchers or dietary consult advised. All questions have been answered. Patient appears to understand informatio n, but if you have any questions please call or respond to this email. [id number] Gabriela Ponce [facility] [address] [place] [place] [address] 10/16/2020 12:22:38 10/16/2020 13:26:58 Gynecologic examination 85229811 Z01.419 Suggested Calcium with Vitamin D 1200-1500m g daily. Patient advised to get an annual flu shot in the fall and she could obtain at [facility] or [facility] care clinic. Also to obtain TDap vaccinatio n if you have not had one in the last 10 years. Recommend yearly mammograms . Encouraged monthly self breast exams. Encourage safe sexual practices, to use condoms and limit partners if not already in a monogamous relationsh ip. Engage in daily exercise of low impact aerobic exercise 45-60 minutes 4-5 times weekly. Avoid tobacco and illicit drugs as well as using moderation with alcohol intake less than 1-2 8 oz beverages daily. This lifestyle behavior pattern will lead to less health conditions and longer life span. If BMI greater than 25 weight watchers or dietary consult advised. All questions have been answered. Patient appears to understand informatio n, but if you have any questions please call or respond to this email.Pap/ hpv sentIUD strings +STD declinedMa mmo ordered Family his tory of Factor V Leiden mutation [id number] Z83.2 Found out her step-siste r has factor V & requested testing for this mutation. Screening for malignant neoplasm of colon 467501721 Z12.11 Needs screening colonoscop y.Wants to do it this coming summer when she is on school break. [id number] Sharron Lyles [facility] [address],[place] [address] 08/19/2021 14:14:02 08/23/2021 10:11:35 Left without being seen [id number] 9102 Z53.21 [id number] Gabriela Ponce [facility] [address],[place] [address] 02/23/2022 10:33:18 02/23/2022 11:04:45 Gynecologic examination 88481056 Z01.419 Z11.51 Suggested Calcium with Vitamin D 1200-1500m g daily. Patient advised to get an annual flu shot in the fall and she could obtain at [facility] or [facility] care [facility]. Also to obtain TDap vaccinatio n if you have not had one in the last 10 years. Recommend yearly mammograms . Encouraged monthly self breast exams. Encourage safe sexual practices, to use condoms and limit partners if not already in a monogamous relationsh ip. Engage in daily exercise of low impact aerobic exercise 45-60 minutes 4-5 times weekly. Avoid tobacco and illicit drugs as well as using moderation with alcohol intake less than 1-2 8 oz beverages daily. This lifestyle behavior pattern will lead to less health conditions and longer life span. If BMI greater than 25 weight watchers or dietary consult advised. All questions have been answered. Patient appears to understand informatio n, but if you have any questions please call or respond to this email.Pap/ hpv due q3yrs per asccp unless otherwise indicated. STD Screen declined Genetic Screen discussed Colon Screen cologuard 2021 Dexa Screen na Routine Labs PCPMammo orderedA Mirena IUD prevents for up to 8 years, and also helps with heavy periods for up to 5 years in women who choose an IUD for control. [id number] [facility]ri[facility] Ponce [facility] [address] [address] 02/28/2023 09:15:38 02/28/2023 10:14:19 Gynecologic examination [id number] Z01.419 Z11.51 Suggested Calcium with Vitamin D 1200-1500m g daily. Patient advised to get an annual flu shot in the fall and she could obtain at [facility] or [facility] ([facility]3]. Also to obtain TDap vaccinatio n if you have not had one in the last 10 years. Recommend yearly mammograms . Encouraged monthly self breast exams. Encourage safe sexual practices, to use condoms and limit partners if not already in a monogamous relationsh ip. Engage in daily exercise of low impact aerobic exercise 45-60 minutes 4-5 times weekly. Avoid tobacco and illicit drugs as well as using moderation with alcohol intake less than 1-2 8 oz beverages daily. This lifestyle behavior pattern will lead to less health conditions and longer life span. If BMI greater than 25 weight watchers or dietary consult advised. All questions have been answered. Patient appears to understand informatio n, but if you have any questions please call or respond to this email.Pap/ hpv sent STD Screen declined Genetic Screen discussed Colon Screen cologuard age 51yo Dexa Screen na Routine Labs UTD PCP [id number] MARTINEZ LINDQUIST, MAMI [place] [address] [address] 03/25/2024 09:50:01 03/25/2024 10:40:00 Gynecologic examination [id number] Z01.419 Annual gynecologi dina exam performed. Patient will come back in a year unless there are new symptoms. Suggest Calcium with Vitamin D if not eating in diet. Patient advised to get annual flu shot. Recommend yearly physicals and perform monthly breast exams. Genetic testing is available for patients with family history of cancer. Engage in safe sexual practices, use condoms. Encouraged to have daily exercise. Avoid tobacco and illicit drugs, moderation of alcohol. If BMI greater than 25 dietary consult advised. If you have any questions please call or email. mammogram- DUE; pt has scheduled; order given colon cancer screening - DUE (cologuard 2021), GI referral for colonoscop y sent DEXA scan- n/a Pap smear- UTD (2022 - WNL), will repeat in 2025 per ASCCP guidelines laboratory evaluation - PCP STI testing - declined A Mirena IUD prevents for up to 8 years, and also helps with heavy periods for up to 5 years in women who choose an IUD for control. Patient's IUD expires 08/25/2024, pt to RTO for removal and replacemen t by that time. Screening mammography 24 [id number] Z12.31 Screening for malignant neoplasm of colon [id number] Z12.11 Health Concerns Section Related Observation LastModified by Organization Detai ls LastModified Time None Recorded Concern Status LastModified by Organization Details LastModified Time None Recorded Advance Directives Directive N: Payers Encounter Date Sequence Insurance Name Policy Number Policy Ross Covered Member ID Ross Member ID Guarantor Name 10/16/2020 1 [place] [id number] Tania L Brombolich [id number] Tania Brombolich 08/19/2021 1 [place] [id number] Tania L Brombolich [id number] Tania Brombolich 02/23/2022 1 [place] [id number] Tania Brombolich [id number] Tania Brombolich 02/28/2023 1 [place] [id number] Tania Brombolich [id number] Tania Brombolich 03/25/2024 1 [place] [id number] Tania Brombolich [id number] Tania Brombolich Notes Date Note Type Note Provider Name and Address Organization Details Recorded Time 10/16/2020 text/html Annual GYNReport ed bypatient.History:no gynecologic complaints Menstrual cycle:Normal menses (Amenorrheic on IUD) Urinary symptoms:No hematuria; No incontinence Vulva:No genital lesion Vagina:Normal vaginal discharge Breast:No breast pain; No breast lump; No nipple discharge Current Contraception:Satisf ied with current contraception; Monogamous relationship; Intrauterine device (iud) Sexual complaints:No sexual complaints; No pain during intercourse; Normal libido Menopausal Symptoms:No menopausal symptoms; Normal vaginal lubrication Psychological symptoms:No depression; No anxiety; No PMDD Preventive measures:Encourage self breast examination; Encourage regular exercise; Encourage no tobacco use; Encourage regular mammograms starting age 40; Followed with Q3 year pap smear and high risk HPV typing; Needs to schedule mammogram; Needs to schedule colonoscopy FLACO Prieto- [address], [place], [address], [facility] 10/16/2020 13:22:56 08/19/2021 text/html Patient presents for IUD insertion. FLACO Salamanca [address], [place], [address], [facility] 08/23/2021 10:11:31 02/23/2022 text/html Annual GYNReport ed bypatient.History:no gynecologic complaints Menstrual cycle:Normal menses (Amenorrheic on IUD mirena) Urinary symptoms:No hematuria; No incontinence Vulva:No genital lesion Vagina:Normal vaginal discharge Breast:No breast pain; No breast lump; No nipple discharge Current Contraception:Satisf ied with current contraception; Intrauterine device (iud) Sexual complaints:No sexual complaints; No pain during intercourse; Normal libido Menopausal Symptoms:No menopausal symptoms; Normal vaginal lubrication Psychological symptoms:No depression; No anxiety; No PMDD Preventive measures:Encourage self breast examination; Encourage regular exercise; Encourage no tobacco use; Encourage regular mammograms starting age 40; Needs to schedule mammogram; Up to date on colonoscopy screening Gabriela Ponce [facility] [address], [place], [address], [facility] 02/23/2022 11:01:18 02/28/2023 text/html Annual GYNReport ed bypatient.History:no gynecologic complaints Menstrual cycle:Normal menses Urinary symptoms:No hematuria; No incontinence Vulva:No genital lesion Vagina:Normal vaginal discharge Breast:No breast pain; No breast lump; No nipple discharge Current Contraception:Satisf ied with current contraception; Intrauterine device (iud) Sexual complaints:No sexual complaints; No pain during intercourse; Normal libido Menopausal Symptoms:No menopausal symptoms; Normal vaginal lubrication Psychological symptoms:No depression; No anxiety; No PMDD Preventive measures:Encourage self breast examination; Encourage regular exercise; Encourage no tobacco use; Encourage regular mammograms starting age 40; Followed with yearly pap smears; Mammogram performed within the past year; Up to date on colonoscopy screening Gabriela Ponce [facility] [address], [place], [address], [facility] 02/28/2023 10:11:04 03/25/2024 text/html Annual GYNReport ed bypatient.History:no gynecologic complaints Urinary symptoms:No hematuria; No incontinence Vulva:No genital lesion Vagina:Normal vaginal discharge Breast:No breast pain; No breast lump; No nipple discharge Current Contraception:Satisf ied with current contraception; Intrauterine device (iud) Sexual complaints:No sexual complaints; No pain during intercourse; Normal libido Menopausal Symptoms:No menopausal symptoms; Normal vaginal lubrication Psychological symptoms:No depression; No anxiety; No PMDD Preventive measures:Encourage self breast examination; Encourage regular exercise; Encourage no tobacco use; Encourage regular mammograms starting age 40 Patient presents for annual well woman exam. Patient denies concerns today.Patient would like IUD removal and replacement when due. Patient denies periods with IUD. Denies perimenopausal sx. MARTINEZ LINDQUIST, MAMI [address], [place], [address], [facility] 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 Vertical Status 10/10/19 20 2 CLOSED Fetus Data First Name Last Name Admitted to NICU Weight (g) Sex Living Outcome Pediatric Complications Fetus ID Race Codes Race Delivery Type 3146.56 7704 M Full Term 3571 Primary 3373.36 3704 F Full Term [id number] Primary Terry Calculation Initial Terry Date Initial Exam Date Initial Exam Provider Initial Ultrasound Date Last Menstrual Period Date Ultra Sound Weeks Gestation 0 Eighteen To Twenty Week Terry Update Ultra Sound Date Fundal Height At Umbil Quickening Date Ultra Sound Latest Weeks Gestation Final Terry Confirmed By Final Terry Confirmed Date Final Terry Date Ultra Sound Latest Days Gestation 0 0 Menstrual History Last Menstrual Date Menses Monthly On Bcp Conception Prior Menses Frequency Hcg Plus Date Menarche Onset Age Delivery Information Delivery Date Delivery Type Labor Anesthesia Weeks Gestation Incision Type Labor Labor Length Hrs Delivered By Post Complications Tubal Sterilization Discharge Date Comments 1 39 Discharge Information Feeding Method Contraceptive Method Maternal HG B and HCT Levels
== END 2024-04-25 15:44 | disposition home or self-care (01) ==
PROVIDERS: PCP Family Medicine; Visit Provider Nurse Practitioner Obstetrics & Gynecology
DX: Z12.31 Encounter for screening mammogram for malignant neoplasm of breast (principal)
CPT/HCPCS: 77063; 77067

== ENCOUNTER 2025-01-06 00:22 | Day surgery (SDC) | payer BC, SELFPAY ==
[2024-12-25 14:44] VITALS: BMI 39.1
--- NOTE | 2024-12-25 14:52 | PC.NURSE ---
[facility] has started construction of its new state of the art ER which will open Spring 2026. With this, we anticipate parking may be a challenge for some our surgical patients and families. Parking spaces are limited but are available for all Surgical, obstetrics, and ER patients sharing this lot. If you arrive and find you are having a hard time finding a parking space, please note that we understand the challenges, please drive around the hospital and park near Hospital Entrance 1. When you enter this entrance, you can ask a volunteer to direct or take you back to the surgical waiting area to check in. We appreciate everyone?s understanding of these expected challenges while we build for your future. Report to the Outpatient Waiting Room, entrance under the green pavilion located off [address], at time _0600_ on date _[id number]_. Planned Procedure Time: _0730_.? Time changes happen often and if your time is changed the preop area will call you the afternoon before. - You and your visitor will be asked to self-screen and do not enter if you have any COVID symptoms. Please call surgeon if you need to reschedule. - A mask is optional within the hospital at this time. Patients may have clear liquids (water, carbonated beverages, clear teas, apple juice) until 3 hours prior to surgery with a maximum of 20 ounces. - No food from midnight until time of surgery and no smoking, or chewing tobacco (or any form of nicotine). No chewing gum, candy or mints. Take only the following medications with a SIP of water on the morning of surgery: __None__ DO NOT STOP ANY OF YOUR OTHER PRESCRIPTION MEDICATIONS PRIOR TO SURGERY EXCEPT THE FOLLOWING Hold all vitamins and supplements for 3 days per anesthesiologist. Medications to discontinue per physician Please call office and ask about Aspirin if need to hold. Date to take last dose Please no make-up, nail german, hairspray, perfume, deodorant, or body powder the day of surgery.? No jewelry (including any body piercings) or valuables the day of surgery, leave them at home.? Please take a shower or bath the night before, or the morning of, surgery with an antibacterial soap.? Wear comfortable, loose fitting clothing.? - Jewelry must be removed prior to entering the operating room.? Rings and piercings that are not removed may be cut off. - The hospital will not accept responsibility for valuables.? - Please leave all valuables, including medications, at home the day of surgery. If you are going home after surgery, a licensed driver recruiter must drive you home.? - NO public transportation without another adult if you receive anesthesia. - We recommend that an adult stay with you for 24 hours following discharge. - We also recommend that you do not drive, make important decision, drink alcoholic beverages, or take any drugs that were not prescribed by your health care provider for at least 24 hours after your discharge time. Follow any additional instructions given to you from your surgeon. Telephone instructions given to __Tania__and asked if any additional questions and then verbalized understanding. Patient advised to call surgeon office or pre surgery nurse liaison [phone] if any additional questions.
--- OUTSIDE RECORDS SUMMARY | 2025-01-06 00:25 | XMS_ITS | Data Portability ---
Author Organization [facility] [place] Address [address] [place] [address] Care Team Providers Care Security Incident Handler Name Role Phone WOODQUEAGUSTÍN Primary Care Provider Assessment Encounter Date Assessment Date Assessment LastModified by Organization Details LastModified Time 02/28/2023 02/28/2023 Annual gynecological exam performed. Patient will come back in a year unless there are new symptoms. [email or web address] Not available 02/28/2023 09:30:10 03/25/2024 03/25/2024 Annual gynecological exam performed. Patient will come back in a year unless there are new symptoms. [email or web address] Not available 03/18/2024 18:15:18 Plan of Treatment Reminders Order Date Submit Date Provider Last Modified By Organization Details Last Modified Time Details Appointments SURG Hysterosc opy 2024 07:30A Edilberto SANCHEZ MD Not available Not available Not available SURG POST OP 2024 10:00A Edilberto SANCHEZ MD Not available Not available Not available Lab test, urine 2024 025 [place], [address], [place], [address], 09/20/2024 11:27:25 test, urine 2024 025 [email or web address] [place], [address], [place], [address], 08/19/2024 10:55:03 Referral None recorded. Procedures None recorded. Surgeries hysterosc opy, removal of foreign body (SURG) 2024 025 [email or web address] [facility], [address], [place], [address], 09/23/2024 12:26:40 Imaging US, transvagi nal 2024 025 [email or web address] [place], [address], [address], [place], [address], 08/26/2024 16:42:42 US, pelvis, complete 2024 025 [facility], [address], [address], [place], [address], 08/29/2024 04:12:23 MAMMO, screening , digital, bilateral 2024 025 [facility], [address], [address], [place], [address], 09/29/2024 05:01:42 Medication Orders None recorded. Patient TargetsNo targets recorded. Patient InstructionsNo instructions recorded. Reason for Referral None Reported. 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 FINAL DIAGN OSIS: Negat segundo for Intra epith elial Lesio radha or Lola orosco (NIL) . Elect preciousmariano love jaspreet d by Sharon Stewart on 03/02 at [...] is recom barbra d, as clini dallin guaman nted. Not Available [facility] ([facility]) [address], [place], [address], 03/02/2023 17:22:36 08/20/19 25 08/19/2024 pregn joao test, urine HCG negati ve Not Available [place] [address], [place], [address], 08/19/2024 10:35:47 09/21/19 25 09/20/2024 pregn joao test, urine HCG negati ve Not Available [place] [address], [place], [address], 09/20/2024 11:27:06 04/25/19 25 04/25/2024 imagi ng/di agnos tic resul t No observ ation record ed. [facility] [address], [place], [address], 04/25/2024 18:08:07 08/27/19 25 08/26/2024 US, trans vagin al No observ ation record ed. [email or web address] [place] [address], [place], [address], 08/26/2024 18:15:38 08/27/19 25 08/26/2024 US, trans vagin al No observ ation record ed. [address], [place], [address], 09/23/2024 13:59:55 Result Notes None recorded. Problems Name Problem SNOMED Code Status Onset Date Resolution Date Notes Provider Name and Address Organization Details Recorded Time SNOMED CT Concept Completed 201510/16/2020 Encntr for general adult medical exam w/o abnormal findings ;Recorde d Elsewher e: No [facility] S ource: EHR Service Desk Technician francesco: N Deventi ce ID: 0001 Sinan lable Time: 01:00:00 PM Mary Block [facility] 12:19:10 Pain in female genitali a Completed 201510/16/2020 Dysmenor miah;Rec orded Elsewher e: No Locat ion: [facility] N Deventi ce ID: 0001 Sinan lable Time: 01:00:00 PM Mary Block [facility] 12:19:02 Screenin g for malignan t neoplasm of rectum Completed 201510/16/2020 Encounte r for screenin g for malignan t neoplasm of rectum;P ractice ID: 0001 Mary Block [facility] 12:19:09 Polyp of corpus uteri 24920363 Completed 201510/16/2020 Polyp of uterus;R ecorded Elsewher e: No Locat ion: [facility]: N Deventi ce ID: 0001 Sinan lable Time: 05:30:00 PM Mary Block [facility] 12:19:05 Abnormal uterine bleeding [id number] 100 Completed 201610/16/2020 Other specifie d abnormal uterine and vaginal bleeding ;Recorde d Elsewher e: No Locat ion: [facility] S ource: EHR Service Desk Technician francesco: N Deventi ce ID: 0001 Sinan lable Time: 09:00:00 AM Mary Block [facility] 12:18:57 Pregnanc y test negative 319359343 Completed 201610/16/2020 Encounte r for pregnanc y test, result negative ;Recorde d Elsewher e: No Locat ion: Sandra patel [facility] S ource: EHR Service Desk Technician francesco: N Practi ce ID: 0001 Sinan lable Time: 09:30:00 AM Mary Block [facility] 1 12:19:07 Insertio n of intraute rine contrace ptive device Completed 201610/16/2020 Encounte r for insertio n of intraute rine contrace ptive device;R ecorded Elsewher e: No [facility]at ion: [facility] S ource: EHR Service Desk Technician francesco: N Practi ce ID: [id number] Sinan lable Time: 09:30:00 AM Mary Block [facility] 12:19:04 Disorder of intraute rine contrace ptive device Completed 201610/16/2020 [facility] compl of intraute rine contrace ptive device, init encntr;R ecorded Elsewher e: No [facility] Service Desk Technician francesco: N Practi ce ID: 0001 Sinan lable Time: 10:30:00 AM Mary Block [facility] 12:19:00 Contrace ptive sheath status 436112299 Completed 201610/16/2020 IUD follow up;Recor ded Elsewher e: No [facility] S ource: EHR Service Desk Technician francesco: N Practi ce ID: 0001 Sinan lable Time: 08:30:00 AM Mary Block [facility] 1 12:18:[address] Concept Completed 201810/16/2020 Well woman check w/o abnormal finding; Recorded Elsewher e: No Locat ion: [facility] S ource: EHR Service Desk Technician francesco: N Practi ce ID: 0001 Sinan lable Time: 11:00:00 AM Mary Block [facility] 12:19:12 Problem Notes None recorded. Procedures Surgical History Date Name Laterality Status Provider Name and Address Organization Details Recorded Time 09/21/19 25 IUD Removal completed MONICA SANCHEZ MD [address], [place], [address], [facility] 09/20/2024 12:01:57 02/29/20 23 Date of Last Pap Smear completed Laura Galeas [facility] 03/18/2024 18:16:38 12/05/19 23 Date of Last Mammogram completed [facility] 02/28/2023 09:34:49 10/24/19 22 Date of Last Colonoscopy completed [facility] 02/28/2023 09:24:00 08/20/19 22 IUD Insertion completed Mary Bailon [facility] 08/18/2021 20:04:45 Tubal Ligation completed [facility] 10/10/2019 10:29:[address] [facility] 10/10/2019 10:29:11 Imaging Results None recorded. Procedure Notes None recorded. Medical Equipment None [...] Prescrib ed Elsewher e: No Locat ion: Sandra patel [facility] M odify By: jose c Patel ncounter DateTime : 07/07/19 06:46:16 PM Not Available Not Available Not Available Depo-Prov era 150 mg/mL intramusc ular suspensio n inject 1 millilit er by intramus cular route every 3 months 07/01 completed Prescrib ed Elsewher e: No Locat ion: Graeme amanda [facility] odify By: amraul mauro DateTime : 09/30/19 16 01:00:00 PM Not Available Not Available Not Available Flagyl 500 mg tablet take 1 tablet by oral route every 12 hours 07/08 completed Prescrib ed Elsewher e: No Locat ion: Sandra [facility] odify By: makeda sanches DateTime : 07/09/19 17 08:37:00 AM Not Available Not Available Not Available misoprost ol [address] 1 TABLET VAGINALL Y THE NIGHT BEFORE YOUR PROCEDUR E. active Not Available Not Available No t Available methylpre dnisolone 4 mg tablets in a dose pack TAKE 1 TABLET BY MOUTH DIRECTED 10/16 completed Not Available Not Available Not Available Zyrtec 10 mg chewable tablet chew 1 tablet by oral route every day active Prescrib ed Elsewher e: Yes Loca tion: Sandra patel [facility] odify By: artis mauro DateTime : 09/30/19 16 01:00:00 PM Not Available Not Available Not Available Zyrtec 10/09 completed Not Available Not Available Not Available Afluria Qd 2018- (36 mos up)(PF)60 mcg (15 mcg x4)/0.5 mL IM syringe 10/09 completed Not Available Not Available Not Available Vitals Date Recorded Body height Body mass index (BMI) Body weight Systolic And Diastolic Provider Name and Address Organization Details Last Updated DateTime 03/25/2024 175.26 cm 32.4 kg/m2 99070.17 g 113/79 mm[Hg] [facility] 03/25/2024 10:05:10 Date Recorded Body height Body mass index (BMI) Body weight Systolic And Diastolic Provider Name and Address Organization Details Last Updated DateTime 08/19/2024 175.26 cm 32.5 kg/m2 36471.32 g 143/80 mm[Hg] [facility] 08/19/2024 09:59:55 Date Recorded Body height Body mass index (BMI) Body weight Systolic And Diastolic Provider Name and Address Organization Details Last Updated DateTime 09/20/2024 175.26 cm 33.1 kg/m2 460463.69 g 135/84 mm[Hg] Masha Canales [facility] 09/20/2024 11:03:28 Date Recorded Body weight Body mass index (BMI) Body height Systolic And Diastolic Provider Name and Address Organization Details Last Updated DateTime 02/28/2023 96038.62 g 30.6 kg/m2 175.26 cm 115/78 mm[Hg] Martha Vences [facility] 02/28/2023 09:33:59 Social History Question Answer Notes LastModified by Organizat ion Details LastModified Time Tobacco Smoking Status Never [facility] 02/23/2022 10:47:05 Do You Have An Advance Directive? No Information n ot available 10/16/2020 Are You Blind Or Do [...] Or The Highest Degree You Have Received? [id number] Information not available 10/16/2020 Are There Any [...] No Information not available 02/23/2022 Do You Use Sunscreen Routinely? Yes Information not available 10/16/2020 Have You Used IV Drugs? No Information not available 10/16/2020 Sex: Unknown Functional Status Question Answer Note LastModified by Organizat ion Details LastModified Time Do you use any illicit or recreational drugs? No Information not available 10/16/2020 What is your level of alcohol consumption? Occasional Information not available 10/16/2020 Are you able to walk independently without assistance or assistive devices? 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 Moderate Information not available 10/16/2020 Mental Status Question Answer Note LastModified by Organization D etails LastModified Time Do you feel stressed (tense, restless, nervous, or anxious, or unable to sleep at night)? [id number] Information not available 10/16/2020 Family History Relationship Description Onset Age of this Age Resolved Age Notes LastModified by Organization Details LastModified Time Mother Diabetes mellitus [email or web address] Not available 2019 10:27:56 Mother Hyperlipidem ia [email or web address] Not available 09/03 10:42:16 Mother Congenital heart disease [email or web address] Not available 09/03 10:42:16 Mother Hypertensive disorder Not available 2020 12:25:08 Father Diabetes mellitus [email or web address] Not available 2019 10:27:56 Father Hyperlipidem ia [email or web address] Not available 09/03 10:42:16 Father Congenital heart disease [email or web address] Not available 09/03 10:42:16 Father Hypertensive disorder Not available 2020 12:25:43 Sister Hyperlipidem ia [email or web address] Not available 09/03 10:42:16 Sister Congenital heart disease [email or web address] Not available 09/03 10:42:16 Sister Hypertensive disorder Not available 2020 12:25:08 [...] Mammogram 12/04/2022 STIs/STDs Y Current Control Method None Age at First Child 40 Date of [...] Diagnosis SNOMED-CT Code Diagnosis ICD10 Code Diagnosis IMO Codes Diagnosis Note [id number] FLACO Prieto[facility] [address] [address] 10/10/2019 10:08:44 10/10/2019 12:31:44 Gynecologic examination 83655011 Z01.419 Suggested Calcium with Vitamin D 1200-1500m g daily. Patient advised to get an annual flu shot in the fall and she could obtain at [facility] or [facility] take care clinic. Also to obtain TDap vaccinatio [...] please call or respond to this email. [id number] Gabriela Ponce , [facility] [address] [address] 10/16/2020 12:22:38 10/16/2020 13:26:58 Gynecologic examination 59077643 Z01.419 Suggested Calcium with Vitamin D 1200-1500m g daily. Patient advised to get an annual flu shot in the fall and she could obtain at [facility] or [facility] care clinic. Also to obtain TDap vaccinatio [...] his tory of Factor V Leiden mutation [id number] 7512263 Z83.2 Found out her step-siste r has factor V & requested testing for this mutation. Screening for malignant neoplasm of colon 482315617 Z12.11 Needs screening colonoscop y.Wants to do it this coming summer when she is on school break. [id number] Sharron Lyles [facility] [address] [address] 08/19/2021 14:14:02 08/23/2021 10:11:35 Left without being seen [id number] 9102 Z53.21 [id number] Gabriela Ponce [facility] [address] [address] 02/23/2022 10:33:18 02/23/2022 11:04:45 Gynecologic examination 66602829 Z01.419 Z11.51 Suggested Calcium with Vitamin D 1200-1500m g daily. Patient advised to get an annual flu shot in the fall and she could obtain at [facility] or [facility] clinic. Also to obtain TDap vaccinatio n [...] women who choose an IUD for control. [id number] Gabriela Ponce [facility] [address] [address] 02/28/2023 09:15:38 02/28/2023 10:14:19 Gynecologic examination 45127267 Z01.419 Z11.51 Suggested Calcium with Vitamin D 1200-1500m g daily. Patient advised to get an annual flu shot in the fall and she could obtain at [facility] or [facility] care clinic. Also to obtain TDap vaccinatio [...] Dexa Screen na Routine Labs UTD PCP [id number] Curtis Bradford MD [place] [address] [address] 08/19/2024 09:44:12 08/19/2024 11:01:43 IUD threads lost 980667054 T83.32XA [id number] Discussed that IUD was unable to be removed today due to non-visibl e IUD strings.Pe lvic ultrasound ordered to check for IUD placement. Will f/u with for u/s follow-up and to discuss removal options (possible hysterosco py consult)Jesus larkin verbalized understand ing.Clarissa t states that she does not desire another IUD. [id number] Curtis Bradford MD [place] [address] [address] 03/25/2024 09:50:01 03/25/2024 10:40:00 Gynecologic examination 27775967 Z01.419 Annual gynecologi dina exam performed. Patient [...] scan- n/a Pap smear- UTD (2022 - WN), will repeat in 2025 per ASCCP guidelines laboratory evaluation - PCP STI testing - declined A Mirena IUD prevents for up to 8 years, and also helps with heavy periods for up to 5 years in women who choose an IUD for control. Patient's IUD expires 08/25/2024, pt to RTO for removal and replacemen t by that time. Screening mammography 24 576944 Z12.31 Screening for malignant neoplasm of colon 712579189 Z12.11 [id number] MONICA SANCHEZ MD [place] [address] [address] 08/26/2024 14:01:28 08/26/2024 14:34:20 Disorder of intrauterine contraceptive device 682919932 T83.39XA [id number] MONICA SANCHEZ MD [place] [address] [address] 09/20/2024 10:41:48 09/20/2024 12:03:55 Removal of intrauterine contraceptive device 0849491005 Z30.551 [id number] - unsuccessf ul due to cervical stenosis despite cytotec 12 hours prior- will schedule hysterosco py and IUD removal- discussed risks of surgery, including bleeding, infection, and injury to adjacent structures - consents signed Health Concerns Section Related Observation LastModified by Organization Detai ls LastModified Time None Recorded Concern Status LastModified by Organization Details LastModified Time None Recorded Advance Directives Directive N: Payers Insurance Date Sequence Insurance Name Policy Number Policy Ross Covered Member ID Ross Member ID Guarantor Name 01/05/2025 1 [place] [id number] Tania Draper [id number] Tania Draper 01/05/2025 1 [place] [id number] Tania Draper [id number] Tania Draper Notes Date Note Type Note Provider Name and Address Organization Details Recorded Time 02/29/20 23 text/ht ml Annual GYNReported by PatientHistoryFor history, patient reportsno gynecologic complaints.Genitourinary symptomsFor menstrual cycle, patient reportsnormal menses. For urinary symptoms, patient reportsno hematuriaandno incontinence. For vulva, patient reportsno genital lesion. For vagina, patient reportsnormal vaginal discharge.Breast symptomsFor breast, patient reportsno breast pain,no breast lump, andno nipple discharge.ContraceptionFor current contraception, patient reportssatisfied with current contraceptionandintrauterine device (iud).Endocrine symptomsFor sexual complaints, patient reportsno sexual complaints,no pain during intercourse, andnormal libido. For menopausal symptoms, patient reportsno menopausal symptomsandnormal vaginal lubrication.Psychological symptomsFor psychological symptoms, patient reportsno depression,no anxiety, andno pmdd.Preventative measuresFor preventive measures, patient reportsencourage self breast examination,encourage regular exercise,encourage no tobacco use,encourage regular mammograms starting age 40,followed with yearly pap smears,mammogram performed within the past year, andup to date on colonoscopy screening. Gabriela Ponce, [facility]- [address], [place], [address], [facility] 02/28/2023 10:11:04 03/25/19 25 text/ht ml Annual GYNReported by PatientHistoryFor history, patient reportsno gynecologic complaints.Genitourinary symptomsFor urinary symptoms, patient reportsno hematuriaandno incontinence. For vulva, patient reportsno genital lesion. For vagina, patient reportsnormal vaginal discharge.Breast symptomsFor breast, patient reportsno breast pain,no breast lump, andno nipple discharge.ContraceptionFor current contraception, patient reportssatisfied with current contraceptionandintrauterine device (iud).Endocrine symptomsFor sexual complaints, patient reportsno sexual complaints,no pain during intercourse, andnormal libido. For menopausal symptoms, patient reportsno menopausal symptomsandnormal vaginal lubrication.Psychological symptomsFor psychological symptoms, patient reportsno depression,no anxiety, andno pmdd.Preventative measuresFor preventive measures, patient reportsencourage self breast examination,encourage regular exercise,encourage no tobacco use, andencourage regular mammograms starting age 40. Patient presents for annual well woman exam. Patient denies concerns today.Patient would like IUD removal and replacement when due. Patient denies periods with IUD. Denies perimenopausal sx. MARTINEZ LINDQUIST NP [address], [place], [address], [facility] 03/25/2024 10:34:54 08/20/19 25 text/ht ml Patient presents for Mirena IUD removal.Informed consent obtained. UPT negative. MARTINEZ LINDQUIST NP [address], [place], [address], [facility] 08/19/2024 10:57:05 09/21/19 25 text/ht ml Patient presents for IUD removal. Was previously seen for WWE and strings were not visible. Pelvic US demonstrated normally placed IUD. Hx of stenotic cervix, took cytotec last night. MONICA SANCHEZ MD [address], [place], [address], [facility] 09/20/2024 12:03:39 OBGyn Episode Ob Episode Information Episode Created Date Number of Fetuses Patient Bloodtype Patient rh Status Prepregnancy Weight lbs Domestic Partner Domestic Partner Phone Father Name Endoscopy Registered Nurse Status 10/10/19 20 2 CLOSED Fetus Data First Name Last Name Admitted to NICU Weight (g) Sex Living Outcome Pediatric Complications Fetus ID Race Codes Race Delivery Type 3146.56 7704 M Full Term 3571 Primary 3373.36 3704 F Full Term 97432 Primary Terry Calculation Initial Terry Date Initial [...]
--- OUTSIDE RECORDS SUMMARY | 2025-01-06 00:25 | XMS_ITS | Clinical Summary ---
Author Organization [facility] Address [address] [place] [address] Care Team Providers Care Office Services Representative Name Role Phone Katharine Moreno MD Primary Care Provider Source Comments [facility],non-owned Affiliates and Associated Physician Practices is amultiple site organization consisting of ambulatory clinics and hospital sitesin [place], [place], [place] and [place]. This disclosure is being madepursuant to the Care Everywhere program and may not contain all information available regarding this patient. Last updated 17.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 Gender Identity Not on file Sexual Orientation [...] of 3 - 19+ 3-dose series) 12/14/1990 PNEUMOCOCCAL VACCINE 50+ (1 of 1 - PCV) 12/14/2021 ZOSTER VACCINE (1 of 2) 12/14/2021 DEPRESSION SCREENING 03/06/2024 COVID-19 VACCINE (1 - 2023-2 5 season) 2024 INFLUENZA VACCINE (#1) 2024 HIB VACCINE Aged Out No longer eligi ble based on patient's age to complete this topic HPV VACCINE Aged Out No longer eligi ble based on patient's age to complete this topic MENINGOCOCCAL (Group B) VACC INE SHARED DECISION-MAKING Aged Out No longer eligibl e based on patient's age to complete this topic MENINGOCOCCAL GROUPS A/C/Y/W VACCINE Aged Out No longer eligible b ased on patient's age to complete this topic Care Teams Office Services Representative Relationship Specialty Start Date End Date Katharine Moreno MD [address] [place] [address] PCP - General 09/21/10
--- OUTSIDE RECORDS SUMMARY | 2025-01-06 00:25 | XMS_ITS | Clinical Summary ---
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 Gender Identity Not on file Sexual Orientation [...] wi th HPV 12/14/2001 Mammogram Screening 2011 Pneumococcal Vaccine: 50+ Years (1 of 1 - PCV) 12/14/2021 Zoster Vaccines (1 of 2) 12/14/2021 COVID-19 Vaccine (3 - 2024-2 6 season) 2024 05/16/2020, 04/25/2020 Influenza Adult (#1) 2024 Hepatitis A Vaccines Aged Out No long er eligible based on patient's age to complete this topic Meningococcal B Vaccine Aged Out No l onger eligible based on patient's age to complete this topic Meningococcal Vaccine Aged Out No mary latanya eligible based on patient's age to complete this topic RSV Immunizations Under 20 Months Aged Out No longer eligible b ased on patient's age to complete this topic
[2025-01-06] MEDS: LACTATED RINGERS 1,000 ML 30 ML IV CONT (06:30)
[2025-01-06] MEDS: ACETAMINOPHEN 500 MG TABLET 1000 MG PO (06:30)
--- NOTE | 2025-01-06 07:08 | WPDANESEPPF ---
Anes - Initial Pre Proc Eval Procedure: Operation Date: 01/06/25 07:30 Proposed Procedures p Hysteroscopy Removal of Foreign Body - Evangelista Barragan MD Date/Time: 01/06/25 07:08 Surgeon: Evangelista Barragan MD Pre Op Diagnosis: IUD Removal Patient Data Age: 54 Gender: F Height: 1.52 m Weight: 90.9 kg Allergies Allergy/AdvReac Type Severity Reaction Status Date / Time No Known Allergies Allergy Verified 12/25/24 14:43 Home Medications ?Medication ?Instructions ?Recorded ?Confirmed ?Type aspirin 81 mg tablet,delayed 81 mg PO DAILY 12/25/24 12/25/24 History release (Adult Low Dose Aspirin) cetirizine 10 mg tablet (24Hour 10 mg PO DAILY 12/25/24 12/25/24 History Allergy) multivitamin (Daily Multi-Vitamin 1 tablet PO DAILY 12/25/24 12/25/24 History tablet) Patient hx anesthesia problems: none Family hx anesthesia problems: none Results Review: All pre-operative results and documents have been reviewed as part of the pre-operative evaluation. [facility] Past Medical History Medical History Allergies Surgical History Surgical History H/O tubal ligation Family History Family History Mother Family history of type 2 diabetes mellitus Skin cancer Heart disease Cerebrovascular accident Father Acute myocardial infarction Father Family history of premature coronary heart disease, Onset Age: 66 Hypertension Family history of elevated blood lipids Family history of diabetes mellitus in first degree relative Patient's father is Social History Social History Smoking status: Never smoker Alcohol intake: current Substance use: never Living arrangements: with family Spiritual care concerns: No Anes - Eval Final PreProcedure Day of Procedure 01/06/25 07:08 Patient weight: obese Heart: regular rate and rhythm Lungs: clear to auscultation Airway: Mallampati scale class II Neurological: alert and oriented Last oral intake: >/= 8 hours ASA classification: II Emergent: no Anesthetic plan: proceed Anesthesia type and monitoring: general GIVS and standard monitoring Results Review: All pre-operative results and documents have been reviewed as part of the pre-operative evaluation. Informed Consent: The patient's anesthetic plan and its attendant risks and benefits were discussed with the patient/family/POA. Questions were solicited and answers provided to the satisfaction of the patient/family/POA.
--- NOTE | 2025-01-06 07:20 | PM.IMHP ---
H&P: HPI History of Present Illness Date/Time: 01/06/25 07:20 Chief Complaint: retained IUD Narrative: Patient is a 54 year old female who presents for hysteroscopic IUD removal. She has failed in office removal twice despite cytotec prior to the second attempt. She would like to proceed with hysteroscopic removal at this time. Denies abdominal pain, fevers, chills, or dysuria. Review of Systems Review of Systems: All systems reviewed & are unremarkable except as noted in HPI and below PMFSH Past Medical History Medical History Allergies Surgical History Surgical History H/O tubal ligation Family History Family History Mother Family history of type 2 diabetes mellitus Skin cancer Heart disease Cerebrovascular accident Father Acute myocardial infarction Father Family history of premature coronary heart disease, Onset Age: 66 Hypertension Family history of elevated blood lipids Family history of diabetes mellitus in first degree relative Patient's father is Social History Social History Smoking status: Never smoker Alcohol intake: current Substance use: never Living arrangements: with family Spiritual care concerns: No Meds Home Medications and Allergies Home Medications ?Medication ?Instructions ?Recorded ?Confirmed ?Type aspirin 81 mg tablet,delayed 81 mg PO DAILY 12/25/24 12/25/24 History release (Adult Low Dose Aspirin) cetirizine 10 mg tablet (24Hour 10 mg PO DAILY 12/25/24 12/25/24 History Allergy) multivitamin (Daily Multi-Vitamin 1 tablet PO DAILY 12/25/24 12/25/24 History tablet) Allergies Allergy/AdvReac Type Severity Reaction Status Date / Time No Known Allergies Allergy Verified 12/25/24 14:43 Exam Const: General: comfortable and no acute distress Eyes: General: appearance normal, both eyes and all related structures Resp: Effort & Inspection: normal respiratory effort Cardio: Rate: regular rate Extrem: General: normal to inspection Psych: Mental Status: mental status grossly normal Assessment and Plan Assessment and plan (1) Retained intrauterine contraceptive device (IUD): Code(s): T83.39XA - Other mechanical complication of intrauterine contraceptive device, initial encounter Status: Acute Assessment and Plan: - s/p 2 unsuccessful attempts in the office - risks, benefits, and alternatives to hysteroscopic removal discussed with patient - patient would like to proceed with hysteroscopic removal of IUD
--- NOTE | 2025-01-06 07:23 | WPDHPUPDATE1 ---
History and Physical Update Update Date/Time: 01/06/25 07:23 History and Physical has been reviewed, including an updated exam of the patient. There are NO changes in the patient's condition. Risks, benefits, and alternatives have been discussed and questions answered. Patient agrees to proceed with procedure.
[2025-01-06 07:26] VITALS: BP 115/89; PULSE 63; RESP 16; TEMP 36.3; O2SAT 100
[2025-01-06 07:31] LABS: BEDSIDEPREGUCG Negative (Negative)
[2025-01-06] MEDS: LIDO 1%/EPINEPHRINE 1:100,000 50 ML VIAL 10 ML INFILTRATE (07:37)
[2025-01-06] MEDS: KETOROLAC 15 MG/ML VIAL (*BKC) IV PUSH (07:41)
--- NOTE | 2025-01-06 07:53 | W.PM.PROC2 ---
Procedure Note - Detailed Date of Procedure 01/06/25 Pre-op Diagnosis IUD Removal Post-op Diagnosis Same Procedure Performed hysteroscopy and IUD removal Surgeon Evangelista Barragan MD Anesthesia MAC Description of Procedure The patient was then taken to the operating room with IVFs running. She was placed in the dorsal supine position where she received MAC without any difficulty.?? The patient was placed in the dorsal lithotomy position using imtiaz stirrups. EUA revealed the above findings. She was then prepped and draped in a normal sterile fashion. A time-out procedure was performed and all members of the OR team agreed on the patient and plan. A bivalved speculum was then inserted into the patient's vagina.? The anterior lip of the cervix was grasped with a single tooth tenaculum. The cervical os was dilated using brittaney dilators. At this point, the hysteroscope was then inserted into the uterine cavity. Saline was used as the distension medium. USing hysteroscopic graspers, the IUD was removed by the strings. The IUD was found to be intact. The hysteroscope was then removed. The IUD was discarded. The tenaculum was removed; the anterior lip of the cervix was hemostatic.? The speculum was then removed. The patient tolerated the procedure well.? Sponge, lap, needle, and instrument counts were correct X2.? The patient was taken out of the dorsal lithotomy position and awakened from anesthesia and taken to the recovery room in stable condition. Estimated Blood Loss 0 Pathology None sent Complications No immediate complications Condition Stable
[2025-01-06 07:55] VITALS: BP 102/49; PULSE 75; RESP 18; O2SAT 93
[2025-01-06 08:25] VITALS: BP 122/68; PULSE 68; RESP 20
[2025-01-06 08:50] VITALS: BP 132/90; PULSE 77; RESP 20
== END 2025-01-06 08:58 | disposition home or self-care (01) ==
PROVIDERS: PCP Family Medicine; Visit Provider Obstetrics & Gynecology
PROC: 0U5B8ZZ Destruction of Endometrium, Via Natural or Artificial Opening Endoscopic (ICD-10-PCS; CPT 58563; principal; 2025-01-06 07:30)
DX: Z30.432 Encounter for removal of intrauterine contraceptive device (principal)
CPT/HCPCS: 58579; A9270; J1885; J2003; J2004; J2250; J2704; J3010; J7120